=== PATIENT | female | born 1955 | race Caucasian/White ===

== ENCOUNTER 2016-02-22 11:13 | Emergency (ER) | payer OTHER ==
[2016-02-22] MEDS ORDERED: AZITHROMYCIN 250 MG TAB ONE ×2 (15:43→15:51)
[2016-02-22] MEDS ORDERED: CEFTRIAXONE 1 GM VIAL ONE ×2 (15:44→15:51)
[2016-02-22] MEDS ORDERED: LIDOCAINE 1% MDV 20 ML ONE (15:44)
[2016-02-22] MEDS ORDERED: LIDOCAINE 2% 20 ML ONE (15:51)
== END 2016-02-22 16:35 | disposition home or self-care (01) ==
LOC: ER 11:13
CPT/HCPCS: 81001; 87077; 87088; 87186; 87804; 96372